=== PATIENT | female | born 1990 | race Two or more races ===

== ENCOUNTER 2018-11-21 08:22 | Emergency (ER) | payer MEDICARE, OTHER ==
[~2018-11-21] VITALS: Ht 154.9 cm; Wt 64.9 kg
[~2018-11-21 08:22] MED LIST: ACET1TAB23 PO; IBUP100T36 PO; ONDA4TAB8 PO
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
[2018-11-21] MEDS ORDERED: IBUPROFEN 600 MG TABLET PO ONE ×2 (08:46→09:00)
[2018-11-21 10:20] VITALS: BP 118/66
== END 2018-11-21 10:22 | disposition home or self-care (01) ==
LOC: ER 08:27
DX: S59.802A Other specified injuries of left elbow, initial encounter (principal); V49.49XA Driver injured in collision with other motor vehicles in traffic accident, initial encounter; Y93.89 Activity, other specified; Y92.413 State road as the place of occurrence of the external cause; Y99.8 Other external cause status
CPT/HCPCS: 73080; 99283; A4606; Z7610